=== PATIENT | male | born 2000 | race Caucasian/White ===

== ENCOUNTER 2021-11-02 18:35 | Inpatient (IN) | payer OTHER, SELFPAY ==
[2021-11-02] MEDS ORDERED: NA CHLORIDE 0.9% 1,000 ML ONE (18:58)
[2021-11-02 19:13] LABS: Absolute Lymphocytes (CBC) 1.1 K/uL (0.7-4.9); Hematocrit 45.6 % (39.6-49.0); Lymphocytes % 7.1 % (15.3-44.8); MCV 88.8 fL (80-100); MPV 8.1 fL (7.6-11.3); RBC Red Blood Cell Count 5.13 M/uL (4.33-5.43)
[2021-11-02 19:14] LABS: Urine Blood Trace-intact (Negative); Urine Glucose Negative (Negative); Urine Protein Trace (Negative); Urine pH 6.5 (5.0-7.0)
[2021-11-02 19:20] LABS: Protime INR 1.23
[2021-11-02 19:42] LABS: Barbiturates NEGATIVE (NEGATIVE); Benzodiazepines NEGATIVE (NEGATIVE); Cocaine POSITIVE (NEGATIVE); METHAMPHETAM NEGATIVE (NEGATIVE); Methadone NEGATIVE (NEGATIVE); Opiates NEGATIVE (NEGATIVE); Phencyclidine NEGATIVE (NEGATIVE); THC Cannibis POSITIVE (NEGATIVE)
[2021-11-02 19:51] LABS: ALT/SGPT 20 U/L (12-78); AST/SGOT 10 U/L (15-37); Albumin 4.6 g/dL (3.4-5.0); Alkaline Phosphatase 76 U/L (45-117); BUN Blood Urea Nitrogen 17 mg/dL (7-18); Bicarbonate 23 mmol/L (21-32); Bilirubin Direct 0.2 mg/dL (0-0.2); Bilirubin Total 0.9 mg/dL (0.2-1.0); Glomerular Filtration Rate 129 ml/min (=/>90); Glucose Level 101 mg/dL (74-106); Potassium 3.6 mmol/L (3.5-5.1); Protein, Total 8.8 g/dL (6.4-8.2); Sodium Level 141 mmol/L (136-145)
[2021-11-02] MEDS ORDERED: ONDANSETRON 4 MG/2 ML VIAL ONE (19:51)
--- NOTE | 2021-11-02 20:25 | RAD REPORT ---
EXAM DESCRIPTION: CT - Head Brain Wo Cont - 11/02/2021 8:15 pm CLINICAL HISTORY: Mental status change, alcohol/drug use COMPARISON: No comparisons TECHNIQUE: All CT scans are performed using dose optimization technique as appropriate and may inclu de automated exposure control or mA/KV adjustment according to patient size. FINDINGS: No intracranial hemorrhage, hydrocephalus or extra-axial fluid collection.No areas of brai n edema or evidence of midline shift. The paranasal sinuses and mastoids are clear. The calvarium is intact. IMPRESSION: No acute intracranial abnormality.
[2021-11-03] MEDS ORDERED: NA CHLORIDE 0.9% 1,000 ML ONE (01:32)
[2021-11-03] MEDS ORDERED: ACETAMINOPHEN 325 MG/SUPP PR ONE (01:39)
[2021-11-03] MEDS ORDERED: ACETAMINOPHEN 650MG/RECT SUPP PR ONE (01:50)
--- NOTE | 2021-11-03 02:08 | ER ---
Nurse's Notes [facility] Name: Rich Roman Age: 21 yrs Sex: Male : 2000 Arrival Date: 11/02/2021 Time: 18:37 Bed 5 Private MD: Diagnosis: Cocaine abuse;Cannabis abuse;Altered mental status, unspecified Presentation: 11/02 18:37 Chief complaint: AMS. Pt was dropped off by reported friend who only knew patients ss first name. Friend stated, "They told me to come pick him up and bring him here because he started shitting on himself and acting like this.". Coronavirus screen: Client denies travel out of the [place] in the last 14 days. Ebola Screen: Patient denies exposure to infectious person. Patient denies travel to an Ebola-affected area in the 21 days before illness onset. Initial Sepsis Screen: Does the patient meet any 2 criteria? No. Patient's initial sepsis screen is negative. Does the patient have a suspected source of infection? No. Patient's initial sepsis screen is negative. Risk Assessment: Do you want to hurt yourself or someone else? Patient reports no desire to harm self or others. 18:37 Method Of Arrival: Wheelchair ss 18:38 Acuity: JESICA 2 ss 18:38 Onset of symptoms is unknown. ss Historical: - Allergies: 23:25 No Known Allergies; lp1 - Home Meds: 18:51 Unable to obtain [Active]; ss - PMHx: 18:51 Unable to Obtain; ss - PSHx: 18:51 Unable to Obtain; ss - Immunization history:: Adult Immunizations unknown. - Social history:: Smoking status: unknown. Screenin:04 Nutritional screening: No deficits noted. Tuberculosis screening: No symptoms or risk jh6 factors identified. Fall Risk IV access (20 points). Ambulatory Aid- None/Bed Rest/Nurse Assist (0 pts). Mental Status- Overestimates/Forgets Limitations (15 pts.). 19:28 Abuse screen: Denies threats or abuse. Denies injuries from another. kd3 Assessment: 18:50 General: Appears distressed, slender, Behavior is agitated, anxious, dystonic type jh6 reaction to unkn substance. 18:50 Neuro: Do Agitation-Sedation Scale (RASS): +2 Agitated Level of Consciousness is jh6 awake, confused, Oriented to none Speech uncomprehended . 19:28 General: Appears distressed, Behavior is anxious. Pain: Unable to use pain scale. kd3 Neuro: Pupils are dilated. Respiratory: Airway is patent Trachea midline Respiratory effort is unlabored. EENT:. 20:01 Reassessment: one episode of vomiting. pt airway maintained, suctioned, administered kd3 Zofr[address] pt [address] on left side. O2 sat 100% on room air. lung sounds clear bilaterally. MD aware. GI: Pt is actively vomiting. 20:06 Reassessment: Patient and/or family updated on plan of care and expected duration. Pain kd3 level reassessed. Patient is alert, oriented x 3, equal unlabored respirations, skin warm/dry/pink. Patient states symptoms have improved. 23:03 General: pt able to make eye contact, nonverbal at this time . as6 23:11 Reassessment: Spoke with Shasha Saldana ([phone]), states she is patient has been lp1 living with her for the last 5 months; Give patient's demographics and birthdate, reports no known drug allergies, no other medical hx; Reports patient was not making sense yesterday, talking about things that did not happen, reported patient has hx of recreational drug abuse. 23:46 Reassessment: Patient and/or family updated on plan of care and expected duration. Pain kd3 level reassessed. Patient is alert, oriented x 3, equal unlabored respirations, skin warm/dry/pink. Patient states symptoms have improved. 11/03 00:36 Reassessment: No changes from previously documented assessment. as6 Vital Signs: 11/02 18:48 BP 148 / 98; Pulse 68; Resp 28; Pulse Ox 100% on R/A; ss 19:31 BP 133 / 76; Pulse 59; Resp 28; Pulse Ox 99% on R/A; kd3 19:57 BP 116 / 86; Pulse 59; Resp 31 S; Pulse Ox 100% on R/A; as6 20:00 Weight 51 kg; as6 20:55 BP 136 / 80; Pulse 59; Resp 18; Pulse Ox 100% on R/A; kd3 21:34 BP 136 / 95; Pulse 67; Resp 29 S; Pulse Ox 100% on R/A; as6 22:30 BP 127 / 84; Pulse 61; Resp 18 S; Pulse Ox 100% on R/A; as6 23:02 BP 130 / 80; Pulse 68; Resp 36 S; Pulse Ox 100% on R/A; as6 23:46 BP 130 / 72; Pulse 62; Resp 25; Pulse Ox 100% on R/A; kd3 11/03 00:35 BP 125 / 74; Pulse 63; Resp 27 S; Pulse Ox 100% on R/A; as6 01:24 BP 131 / 75; Pulse 79; Pulse Ox 99% ; kd3 01:29 Temp 100.3(A); as6 01:42 Temp 100.2(R); kd3 04:07 BP 130 / 76; Pulse 66; Resp 22; Temp 99.5(A); Pulse Ox 100% ; vc1 ED Course: 11/02 18:37 Patient arrived in ED. la1 18:37 Francisco Piper NP is PHCP. pm1 18:37 Al Joe MD is Attending Physician. pm1 18:48 Arm band placed on right wrist. ss 18:50 Placed in gown. Bed in low position. Side rails up X2. jh6 18:53 Triage completed. ss 19:02 Inserted saline lock: 18 gauge in left wrist, using aseptic technique. jh6 19:05 Straight cath inserted, using sterile technique, Specimen obtained. 15Fr Returned sanna dh3 urine. Patient tolerated well. 19:20 Sveta Beauchamp, MARIA GUADALUPE is Primary Nurse. kd3 19:28 Inserted saline lock: 16 gauge in right antecubital area, using aseptic technique. kd3 Blood collected. 20:17 CT Head Brain wo Cont In Process Unspecified. EDMS 11/03 02:07 Tejinder Reed MD is Hospitalizing Provider. pm1 02:08 Lina Schrader MD is Hospitalizing Provider. la1 04:40 No provider procedures requiring assistance completed. Patient admitted, IV remains in vc1 place. Administered Medications: 11/02 19:20 Drug: NS 0.9% 1000 ml Route: IV; Rate: 1000 ml; Site: left forearm; kd3 19:45 Drug: Zofran (Ondansetron) 4 mg Route: IVP; Site: right antecubital; as6 11/03 01:42 Drug: NS 0.9% 1000 ml Route: IV; Rate: 1000 ml; Site: left wrist; kd3 01:42 Drug: Tylenol Suppository 325 mg Route: MO; kd3 01:48 Drug: Tylenol Suppository 650 mg Route: MO; kd3 Medication: 11/02 19:28 VIS not applicable for this client. kd3 Outcome: 11/03 02:08 Decision to Hospitalize by Provider. pm1 04:40 Admitted to Med/surg accompanied by tech, via stretcher, room 203, Report called to jameel pineda RN 04:40 Condition: good 04:40 Instructed on the need for admit. vc1 04:49 Patient left the ED. 1 Signatures: Dispatcher [employer] EDMS Yissel Springer RN RN Mary Garcia RN RN lp1 Uday Bran, MANUFACTURING STOREPERSON-C MANUFACTURING STOREPERSON-Cla1 Francisco Piper, PLAY WRITER PLAY WRITER pm1 Carmen Vargas 3 Tommy Ignacio RN RN as6 Sveta Beauchamp RN RN 3 Ana Marrero RN RN jh6 Dalila Dillon RN RN vc1 Corrections: (The following items were deleted from the chart) 11/02 18:51 18:48 BP 148 / 98; Pulse 68bpm; Resp 16bpm; Pulse Ox 100% RA; [facility] 23:25 23:11 Reassessment: Spoke with Shasha Saldana ([phone]), states she is patient has lp1 been living with her for the last 5 months; Give patient's demographics and birthdate; Reports patient was not making sense yesterday, talking about things that did not happen, reported patient has hx of recreational drug abuse lp1 23:26 18:51 Allergies: Unable to obtain; ss lp1
--- NOTE | 2021-11-03 02:08 | EDPHYS ---
Physician Documentation [facility] Name: Rich Roman Age: 21 yrs Sex: Male : 2000 Arrival Date: 11/02/2021 Time: 18:37 Bed 5 Private MD: ED Physician Al Joe HPI: 11/02 18:39 This 21 yrs old Male presents to ER via Wheelchair with complaints of Altered Mental pm1 Status. 18:39 The patient presents with decreased mental status. Onset: The symptoms/episode pm1 began/occurred today. Possible causes: drug use, unknown. Associated signs and symptoms: Pertinent positives: incontinence. It is unknown whether or not the patient has had similar symptoms in the past. It is unknown whether or not the patient has recently seen a physician. 21-year-old male presents to the ER for complaints of altered mental status. Patient was dropped off by his friend. Patient's friend denies knowing the patient's last name or substances that the patient has taken. He reports that all he knows is that he was called to steel pickler the patient and bring him to the ER. Historical: - Allergies: 23:25 No Known Allergies; lp1 - Home Meds: 18:51 Unable to obtain [Active]; ss - PMHx: 18:51 Unable to Obtain; ss - PSHx: 18:51 Unable to Obtain; ss - Immunization history:: Adult Immunizations unknown. - Social history:: Smoking status: unknown. ROS: 18:39 Unable to obtain ROS due to altered mental status, patient's speech is pm1 incomprehensible, Inability to obtain review of systems from the patient because he is unable to communicate back. Patient with dilated pupils and suspicion of drug abuse based on presentation of patient and the friend who dropped him off. Exam: 18:39 Skin: Warm, dry with normal turgor. Normal color with no rashes, no lesions, and no pm1 evidence of cellulitis. MS/ Extremity: Pulses equal, no cyanosis. Neurovascular intact. Full, normal range of motion. 18:39 Constitutional: The patient appears in no acute distress, non-diaphoretic, non-toxic, well developed, well hydrated, well groomed, well nourished. 18:39 Head/face: Exam is negative for 18:39 Eyes: Pupils: dilated, bilaterally, right pupil is approximately 8 mm(s), left pupil is approximately 8 mm(s). 18:39 Cardiovascular: Exam negative for acute changes, Rate: normal, Rhythm: regular, Pulses: no pulse deficits are appreciated, Heart sounds: normal, normal S1and S2. 18:39 Respiratory: Exam negative for acute changes, respiratory distress, shortness of breath, Breath sounds: are clear throughout. 18:39 Abdomen/GI: Inspection: abdomen appears normal, Palpation: abdomen is soft and non-tender, in all quadrants. 18:39 Neuro: Motor: moves all fours, Abnormal movements: resting tremor, is located in the right arm, left arm, right leg, left leg and mouth. Vital Signs: 18:48 BP 148 / 98; Pulse 68; Resp 28; Pulse Ox 100% on R/A; ss 19:31 BP 133 / 76; Pulse 59; Resp 28; Pulse Ox 99% on R/A; kd3 19:57 BP 116 / 86; Pulse 59; Resp 31 S; Pulse Ox 100% on R/A; as6 20:00 Weight 51 kg; as6 20:55 BP 136 / 80; Pulse 59; Resp 18; Pulse Ox 100% on R/A; kd3 21:34 BP 136 / 95; Pulse 67; Resp 29 S; Pulse Ox 100% on R/A; as6 22:30 BP 127 / 84; Pulse 61; Resp 18 S; Pulse Ox 100% on R/A; as6 23:02 BP 130 / 80; Pulse 68; Resp 36 S; Pulse Ox 100% on R/A; as6 23:46 BP 130 / 72; Pulse 62; Resp 25; Pulse Ox 100% on R/A; kd3 06/ 00:35 BP 125 / 74; Pulse 63; Resp 27 S; Pulse Ox 100% on R/A; as6 01:24 BP 131 / 75; Pulse 79; Pulse Ox 99% ; kd3 01:29 Temp 100.3(A); as6 01:42 Temp 100.2(R); kd3 04:07 BP 130 / 76; Pulse 66; Resp 22; Temp 99.5(A); Pulse Ox 100% ; vc1 MDM: 11/02 18:37 Patient medically screened. pm1 19:44 Data interpreted: Pulse oximetry: on room air is 100 %. Interpretation: normal. pm1 23:54 Data reviewed: vital signs. pm11/03 02:07 Counseling: I had a detailed discussion with the patient and/or guardian regarding: the pm1 need for further work-up and treatment in the hospital. 11/02 18:38 Order name: Acetaminophen; Complete Time: 22:17 pm1 11/02 18:38 Order name: Basic Metabolic Panel; Complete Time: 22:17 pm1 11/02 18:38 Order name: CBC with Diff; Complete Time: 19:19 pm1 11/02 18:38 Order name: ETOH Level; Complete Time: 20:02 pm1 11/02 18:38 Order name: Hepatic Function; Complete Time: 22:17 pm1 11/02 18:38 Order name: PT-INR; Complete Time: 19:21 pm1 11/02 18:38 Order name: Ptt, Activated; Complete Time: 19:21 pm1 11/02 18:38 Order name: Salicylate; Complete Time: 20:02 pm1 11/02 18:38 Order name: Urine Drug Screen; Complete Time: 19:44 pm1 11/02 18:53 Order name: Glucose, Ancillary Testing; Complete Time: 18:59 EDMS 11/02 18:54 Order name: glucometer results - FOR PT WITH NO ID; Complete Time: 20:35 dh3 11/02 19:14 Order name: Urine Dipstick-Ancillary; Complete Time: 19:19 EDMS 11/02 20:02 Order name: CT Head Brain wo Cont; Complete Time: 20:27 pm1 11/03 02:08 Order name: COVID-19 SARS RT PCR (Document "Date of Onset" if Symptomatic) la1 11/02 18:38 Order name: EKG; Complete Time: 18:38 pm1 11/02 18:38 Order name: EKG - Nurse/Tech; Complete Time: 19:28 pm1 11/02 18:38 Order name: IV Saline Lock; Complete Time: 19:16 pm1 11/02 18:38 Order name: Labs collected and sent; Complete Time: 19:16 pm1 11/02 18:38 Order name: Suicide Screening ([place]); Complete Time: 02:15 pm1 11/02 18:38 Order name: Urine Dipstick-Ancillary (obtain specimen); Complete Time: 19:16 pm1 Administered Medications: 11/02 19:20 Drug: NS 0.9% 1000 ml Route: IV; Rate: 1000 ml; Site: left forearm; kd3 19:45 Drug: Zofran (Ondansetron) 4 mg Route: IVP; Site: right antecubital; as6 11/03 01:42 Drug: NS 0.9% 1000 ml Route: IV; Rate: 1000 ml; Site: left wrist; kd3 01:42 Drug: Tylenol Suppository 325 mg Route: MN; kd3 01:48 Drug: Tylenol Suppository 650 mg Route: MN; kd3 Disposition Summary: 11/03/21 02:08 Hospitalization Ordered Hospitalization Status: Observation pm1 Location: Telemetry/MedSurg (observation) pm1 Condition: Stable pm1 Problem: new pm1 Symptoms: have improved pm1 Bed/Room Type: Standard pm1 Provider: Lina Schrader(11/03/21 02:08) la1 Room Assignment: [facility](11/03/21 03:37) Diagnosis - Cocaine abuse pm1 - Cannabis abuse pm1 - Altered mental status, unspecified pm1 Discharge Instructions: - Discharge Summary Sheet pm1 - Cocaine Use Disorder pm1 - Cannabis Use Disorder pm1 Forms: - Medication Reconciliation Form pm1 - SBAR form pm1 Addendum: 11/06/2021 19:16 Co-signature as Attending Physician, Al Joe MD I agree with the assessment and k dr plan of care. Signatures: Dispatcher [employer] EDMS Al Joe MD MD kdr Smirch, Shelby, RN RN Mary Garcia RN RN lp1 Uday Bran, DESIGN ENGINEER AGRICULTURAL EQUIPMENT-C DESIGN ENGINEER AGRICULTURAL EQUIPMENT-Cla1 Barbara Garrison RN RN cg Francisco Piper, AVE LUMBER HACKER pm1 Tommy Ignacio RN RN as6 Sveta Beauchamp RN RN kd3 Corrections: (The following items were deleted from the chart) 11/02 23:26 18:51 Allergies: Unable to obtain; lp1 11/03 02:08 02:08 Tejinder Reed pm1 la1 03:37 02:08 pm1 cg
--- NOTE | 2021-11-03 02:20 | P.HP ---
Certification for Inpatient Patient admitted to: Observation With expected LOS: <2 Midnights Patient will require the following post-hospital care: None Practitioner: I am a practitioner with admitting privileges, knowledge of patient current condition, hospital course, and medical plan of care. Services: Services provided to patient in accordance with Admission requirements found in Title 42 Section 412.3 of the Code of Federal Regulations Patient History Date of Service: 11/03/21 Reason for admission: Altered mental status History of Present Illness: 21-year-old male with history of polysubstance abuse presented to the emergency department with altered mental status. He apparently has been residing with a friend at his mother's house over the course of the last 5 months or so. The patient's friend's mother called she reported that he does have a history of polysubstance abuse including benzos and opiates. Upon presentation to the emergency department patient is awake looking around room pupils are dilated but is not verbally responsive. Patient will make eye contact and grunt but not speaking clearly at this time he has had multiple episodes of vomiting while in the emergency department his vital signs have remained stable his labs were unremarkable including a negative Tylenol level, his urine drug screen was positive for cocaine and marijuana. he remains altered at this time. ED prior wishes to admit for altered mental status likely secondary to poly substance abuse. - Past Medical/Surgical History -: Substance abuse Past Surgical History: Unable to obtain Psychosocial/ Personal History: Reportedly living with a friend at their mother's house - Family History Father History Unknown: Yes - Social History Smoking Status: Unknown if ever smoked Place of Residence: Home Review of Systems is unable to be obtained Physical Examination - Physical Exam General: Alert, In no apparent distress, Confused HEENT: Atraumatic, PERRLA, Other (Mucous membranes dry), EOMI, Sclerae nonicteric Neck: Supple, 2+ carotid pulse no bruit, No LAD, Without JVD or thyroid abnormality Respiratory: Clear to auscultation bilaterally, Normal air movement Cardiovascular: Regular rate/rhythm, Normal S1 S2 Capillary refill: <2 Seconds Gastrointestinal: Normal bowel sounds, No tenderness Musculoskeletal: No tenderness Integumentary: No rashes Neurological: Normal strength at 5/5 x4 extr, Normal tone, Normal affect, Other (Awake, not verbally communicating, moving all 4 extremities.) Lymphatics: No axilla or inguinal lymphadenopathy - Studies Laboratory Data (last 24 hrs) 11/02/21 19:25: Sodium 141, Potassium 3.6, BUN 17, Creatinine 0.81, Glucose 101, Total Bilirubin 0.9, AST 10 L, ALT 20, Alkaline Phosphatase 76 11/02/21 18:45: PT 13.6 H, INR 1.23, APTT 29.6 11/02/21 18:45: WBC 14.7 H, Hgb 15.4, Hct 45.6, Plt Count 370 Assessment and Plan - Plan Assessment: Toxic metabolic encephalopathy secondary to polysubstance abuse Plan: Toxic metabolic encephalopathy secondary to polysubstance abuse: It is unknown exactly what substance patient ingested, he was with his friends who do not appear to be under the influence at this time they are not sure what he had taken although his urine drug screen was positive for cocaine and marijuana. He does appear to be gradually improving during his stay in the emergency department although he is still not verbally communicating and clearly altered. At this point time he is not following commands although he is moving all 4 extremities. His tox work-up is negative so far aside from the positive urine drug screen. we will repeat Tylenol level CT head was negative anticipate mental status will improve over the course of the next 12 to 24 hours. Patient will need to be counseled on dangers of substance abuse and screened for suicidal ideation. DVT PPX: Lovenox Code status: Full Discharge Plan: Home Plan to discharge in: 24 Hours - Advance Directives Does patient have a Living Will: No Does patient have a Durable POA for Healthcare: No - Code Status/Comfort Care Code Status Assessed: Yes (Full code) Critical Care: No Time Spent Managing Pts Care (In Minutes): 70
[2021-11-03] MEDS ORDERED: D5 0.45 NS 1,000 ML IV SCH (04:59)
[2021-11-03] MEDS ORDERED: ONDANSETRON 4 MG/2 ML VIAL IV PRN (04:59)
[2021-11-03 05:25] VITALS: O2SAT 100
[2021-11-03] MEDS ORDERED: DIPHENHYDRAMINE 50 MG/ML VIAL IV ONE (05:51)
[2021-11-03 06:13] LABS: Absolute Lymphocytes (CBC) 1.1 K/uL (0.7-4.9); Hematocrit 40.7 % (39.6-49.0); Lymphocytes % 8.5 % (15.3-44.8); MPV 7.1 fL (7.6-11.3); RBC Red Blood Cell Count 4.52 M/uL (4.33-5.43)
[2021-11-03] MEDS ORDERED: LORazepam 2 MG/ML VIAL IV ONE (08:00)
[2021-11-03] MEDS ORDERED: D5NS KCL 20MEQ 20 MEQ/1,000 ML BAG IV SCH (08:00)
[2021-11-03] MEDS: ENOXAPARIN 40 MG/0.4 ML SQ SCH (08:30)
--- NOTE | 2021-11-03 09:35 | P.PN ---
Subjective Date of Service: 11/03/21 Chief Complaint: Altered mental status Subjective: New changes (Patient still obtunded , open eyes but not following command Appears to be in a catatonic state with repeated contractures and tremors of extremities Extension of neck and repeated tightening of the jaw noted Ativan given and transferred to ICU) Physical Examination - Vital Signs Temperature: 98.4 F Blood Pressure: 121/83 Pulse: 68 Respirations: 20 Pulse Ox (%): 99 - Studies Laboratory Data (last 24 hrs) 11/02/21 19:25: Sodium 141, Potassium 3.6, BUN 17, Creatinine 0.81, Glucose 101, Total Bilirubin 0.9, AST 10 L, ALT 20, Alkaline Phosphatase 76 11/02/21 18:45: PT 13.6 H, INR 1.23, APTT 29.6 11/02/21 18:45: WBC 14.7 H, Hgb 15.4, Hct 45.6, Plt Count 370 Assessment And Plan Physician Review: Patient Assessed, Agree with Above Assessment and Plan Physician Review Additional Text: Patient presenting with altered mental status in setting of illicit drug abuse , urine drug screen positive for THC and cocaine hysical Exam General: Alert, young male, in dystonic state with hyperextension of neck, not following commands HEENT: Atraumatic, pupils markedly dilated, Neck: Supple, 2+ carotid pulse no bruit, No LAD, Without JVD or thyroid abnormality Respiratory: Clear to auscultation bilaterally, Normal air movement Cardiovascular: Regular rate/rhythm, Normal S1 S2 Capillary refill: <2 Seconds Gastrointestinal: Normal bowel sounds, No tenderness Musculoskeletal: No tenderness Integumentary: No rashes Neurological: Dystonic flexion of extremities with repeated tremors and frequent checks, Lymphatics: No axilla or inguinal lymphadenopathy - Studies Laboratory Data (last 24 hrs) 11/02/21 19:25: Sodium 141, Potassium 3.6, BUN 17, Creatinine 0.81, Glucose 101, Total Bilirubin 0.9, AST 10 L, ALT 20, Alkaline Phosphatase 76 11/02/21 18:45: PT 13.6 H, INR 1.23, APTT 29.6 11/02/21 18:45: WBC 14.7 H, Hgb 15.4, Hct 45.6, Plt Count 370 Urine drug screen positive for THC and cocaine Assessment and Plan Cocaine induced dystonia Toxic metabolic encephalopathy secondary to polysubstance abuse Plan Now with generalized dystonic reaction, still dilated pupils, still nonverbal, still obtunded and not following commands. continue aggressive IV fluid We will give Ativan repeat dose, transfer to ICU Dose IV baclofen if available Expected dystonic reaction to continue to improve with benzodiazepine Formal neuro consult Will obtain repeat head CT to see if any change compared to yesterday Continue to monitor closely Will need to discuss drug cessation 11/03/21 09:40 Time Spent Managing PTS Care (In Minutes): 35
--- NOTE | 2021-11-03 10:00 | RAD REPORT ---
EXAM DESCRIPTION: CT - Head Brain Wo Cont - 11/03/2021 9:33 am CLINICAL HISTORY: follow up of AMS Headache, drowsiness, CVA symptomology COMPARISON: Head Brain Wo Cont dated 11/02/2021 TECHNIQUE: All CT scans are performed using dose optimization technique as appropriate and may inclu de automated exposure control or mA/KV adjustment according to patient size. FINDINGS: No intracranial hemorrhage, hydrocephalus or extra-axial fluid collection.No areas of brai n edema or evidence of midline shift. The paranasal sinuses and mastoids are clear. The calvarium is intact. IMPRESSION: No acute intracranial abnormality.
[2021-11-03 11:35] LABS: ALT/SGPT 16 U/L (12-78); AST/SGOT 10 U/L (15-37); Albumin 4.2 g/dL (3.4-5.0); Alkaline Phosphatase 71 U/L (45-117); BUN Blood Urea Nitrogen 19 mg/dL (7-18); Bicarbonate 22 mmol/L (21-32); Bilirubin Total 0.8 mg/dL (0.2-1.0); Glomerular Filtration Rate 129 ml/min (=/>90); Glucose Level 118 mg/dL (74-106); Potassium 4.3 mmol/L (3.5-5.1); Protein, Total 8.2 g/dL (6.4-8.2); Sodium Level 142 mmol/L (136-145)
[2021-11-03] MEDS: LORazepam 2 MG/ML VIAL IV PRN ×3 (12:35→23:58)
[2021-11-03] MEDS: D5NS KCL 20MEQ 20 MEQ/1,000 ML BAG IV SCH ×2 (17:25→23:28)
[2021-11-04 05:42] LABS: Absolute Lymphocytes (CBC) 1.5 K/uL (0.7-4.9); Hematocrit 37.8 % (39.6-49.0); Lymphocytes % 12.5 % (15.3-44.8); MCV 89.4 fL (80-100); MPV 7.2 fL (7.6-11.3); RBC Red Blood Cell Count 4.23 M/uL (4.33-5.43)
[2021-11-04] MEDS: D5NS KCL 20MEQ 20 MEQ/1,000 ML BAG IV SCH (05:57)
[2021-11-04 06:00] LABS: Albumin 3.8 g/dL (3.4-5.0); Bilirubin Total 1.1 mg/dL (0.2-1.0); Potassium 3.7 mmol/L (3.5-5.1); Protein, Total 7.3 g/dL (6.4-8.2)
[2021-11-04] MEDS: ENOXAPARIN 40 MG/0.4 ML SQ SCH (09:07)
--- NOTE | 2021-11-04 11:46 | P.PN ---
Subjective Date of Service: 11/04/21 Chief Complaint: Altered mental status Subjective: No new changes, Improving Physical Examination - Vital Signs Temperature: 99 F Blood Pressure: 129/98 Pulse: 52 Respirations: 25 Pulse Ox (%): 100 - Physical Exam General: Alert, Cooperative HEENT: Atraumatic, Normocephalic Neck: Supple Respiratory: Normal air movement Cardiovascular: Regular rate/rhythm, Normal S1 S2 Gastrointestinal: Soft and benign Musculoskeletal: No swelling Neurological: Normal speech Assessment And Plan - Plan Cocaine induced dystonia Toxic metabolic encephalopathy secondary to polysubstance abuse Plan Had improvement with Benadryl doses. Presently moderately improved as per mentation and able to communicate. Will continue present care with monitoring for continued dystonic reaction. Will continue supportive care with IV fluid as needed and will encourage oral intake. As needed benzodiazepine will be used for any agitation episode/sympathetic hyperactivity. Neurology following Discharge Plan: Home - Code Status/Comfort Care Code Status: Full Code
[2021-11-04] MEDS: LORazepam 2 MG/ML VIAL IV PRN ×2 (19:04→23:05)
[2021-11-05] MEDS: LORazepam 2 MG/ML VIAL IV PRN ×4 (04:51→21:01)
[2021-11-05 05:22] VITALS: BMI 14.6
[2021-11-05 05:42] LABS: Potassium 3.3 mmol/L (3.5-5.1)
[2021-11-05] MEDS ORDERED: POTASSIUM CL SA 10 MEQ TAB PO ONE (07:00)
--- NOTE | 2021-11-05 08:11 | P.PN ---
Subjective Date of Service: 11/05/21 Chief Complaint: Altered mental status Subjective: No new changes, Improving Physical Examination - Vital Signs Temperature: 97 F Blood Pressure: 111/56 Pulse: 80 Respirations: 21 Pulse Ox (%): 100 - Physical Exam General: Alert, Oriented x3 HEENT: Atraumatic, Normocephalic Neck: Supple Respiratory: Normal air movement Cardiovascular: Regular rate/rhythm, Normal S1 S2 Gastrointestinal: Soft and benign Musculoskeletal: No swelling Neurological: Normal speech Assessment And Plan - Plan Cocaine induced dystonia Toxic metabolic encephalopathy secondary to polysubstance abuse, improved. Plan HAs significant improvement in mentation. Now alert and oriented and communicative. We will continue as needed benzodiazepine will be used for any agitation episode/sympathetic hyperactivity. ambulatory services representative to continue assisting with drug detoxification program placement. Physician Review: Patient Assessed, Agree with Above Assessment and Plan
[2021-11-05] MEDS: ENOXAPARIN 40 MG/0.4 ML SQ SCH (09:06)
[2021-11-05] MEDS: chlordiazePOXIDE HCl 25 MG CAP PO SCH ×2 (13:04→20:07)
[2021-11-06] MEDS: LORazepam 2 MG/ML VIAL IV PRN ×2 (00:59→05:46)
[2021-11-06 04:52] LABS: Absolute Lymphocytes (CBC) 2.4 K/uL (0.7-4.9); Hematocrit 39.3 % (39.6-49.0); Lymphocytes % 17.8 % (15.3-44.8); MPV 7.2 fL (7.6-11.3); RBC Red Blood Cell Count 4.42 M/uL (4.33-5.43)
[2021-11-06 05:08] LABS: Potassium 3.1 mmol/L (3.5-5.1)
[2021-11-06] MEDS ORDERED: POTASSIUM 25 MEQ EFFERV TAB PO ONE (09:00)
[2021-11-06] MEDS: chlordiazePOXIDE HCl 25 MG CAP PO SCH ×2 (09:06→14:22)
[2021-11-06] MEDS: ENOXAPARIN 40 MG/0.4 ML SQ SCH (09:06)
[2021-11-06 13:49] VITALS: TEMP 98.2
--- NOTE | 2021-11-06 14:45 | EKG ---
Test Date: 2021-11-02 Test Time: 18:57:11 Agency Legal Counsel: BJ MEASUREMENT RESULTS: Intervals: Rate: 68 DC: 118 QRSD: 88 QT: 434 QTc: 461 Wilmer: P: 63 DC: 118 QRS: 82 T: 76 INTERPRETIVE STATEMENTS: Normal sinus rhythm Normal ECG No previous ECG available for comparison Electronically Signed On 11-06-21 14:41:54 CDT by Jose Manuel Nunes
[2021-11-06 15:30] VITALS: BP 113/67
--- NOTE | 2021-11-08 00:14 | P.DS ---
Discharge Date: 11/06/21 Disposition: ROUTINE DISCHARGE Reason for Admission: Altered mental status Brief History of Present Illness: 21-year-old male with history of polysubstance abuse presented to the emergency department with altered mental status. He apparently has been residing with a friend at his mother's house over the course of the last 5 months or so. The patient's friend's mother called she reported that he does have a history of polysubstance abuse including benzos and opiates. Upon presentation to the emergency department patient is awake looking around room pupils are dilated but is not verbally responsive. Patient will make eye contact and grunt but not sp eaking clearly at this time he has had multiple episodes of vomiting while in the emergency department his vital signs have remained stable his labs were unremarkable including a negative Tylenol level, his urine drug screen was positive for cocaine and marijuana. he remains altered at this time. ED prior wishes to admit for altered mental status likely secondary to poly substance abuse. Hospital Course: Talked with family and patient case manager. Patient will need to follow up as an outpatient for rehab. He is clinically doing well with no new complaints. At this time will go ahead and proceed with discharge home. Vital Signs/Physical Exam: Temp Pulse Resp BP Pulse Ox 98.2 F 95 H 14 113/67 100 11/06/21 12:00 11/06/21 14:00 11/06/21 14:00 11/06/21 14:00 11/05/21 16:00 General: Alert, In no apparent distress, Oriented x3 Laboratory Data at Discharge: WBC 13.7 K/uL (4.3-10.9) H D 11/06/21 04:35 Hgb 13.4 g/dL (13.6-17.9) L 11/06/21 04:35 Hct 39.3 % (39.6-49.0) L 11/06/21 04:35 Plt Count 312 K/uL (152-406) 11/06/21 04:35 PT 13.6 SECONDS (9.5-12.5) H 11/02/21 18:45 INR 1.23 11/02/21 18:45 APTT 29.6 SECONDS (24.3-36.9) 11/02/21 18:45 Sodium 139 mmol/L (136-145) 11/06/21 04:35 Potassium Cancelled 11/06/21 15:00 BUN 13 mg/dL (7-18) 11/06/21 04:35 Creatinine 0.75 mg/dL (0.55-1.3) 11/06/21 04:35 Glucose 89 mg/dL (74-106) 11/06/21 04:35 Total Bilirubin 1.1 mg/dL (0.2-1.0) H 11/04/21 05:13 AST 33 U/L (15-37) 11/04/21 05:13 ALT 21 U/L (12-78) 11/04/21 05:13 Alkaline Phosphatase 61 U/L (45-117) 11/04/21 05:13 Home Medications: Bupropion *Xl* [Wellbutrin XL] 150 mg PO DAILY #30 tab 11/06/21 Divalproex Sodium [Depakote] 125 mg PO BID #60 tablet. 11/06/21 chlordiazePOXIDE HCl [Chlordiazepoxide HCl] 10 mg PO TID #90 capsule 11/06/21 New Medications: chlordiazePOXIDE HCl [Chlordiazepoxide HCl] 10 mg PO TID #90 capsule Divalproex Sodium [Depakote] 125 mg PO BID #60 tablet. Bupropion *Xl* [Wellbutrin XL] 150 mg PO DAILY #30 tab Physician Discharge Instructions: -DC IV and DC home -Follow-up with PCP in 1 to 2 weeks -Follow-up with Psychiatry in 1 to 2 weeks -Please call Dr. Lindo at [phone] if any questions regarding hospital stay -Please call nursing station at [phone] if any nursing or medication questions -Return to the emergency room if symptoms worsen Diet: Regular Activity: Fall precautions Followup: NONE,NONE [Primary Care Provider] - Time spent managing pt's care (in minutes): 35
== END 2021-11-06 15:20 | disposition home or self-care (01) | DRG 917 ==
LOC: EDBD 18:35 → ER 18:35 → ERHOLD 11-03 02:11 → 2ND 11-03 04:22 → 3RD-ICU 11-03 09:30 → OBSVTOIN 11-03 10:49
PROVIDERS: ADMIT Internal Medicine; ATTEND Internal Medicine
DX: T40.5X1A Poisoning by cocaine, accidental (unintentional), initial encounter (principal); G92.8 Other toxic encephalopathy; G24.09 Other drug induced dystonia; T40.711A Poisoning by cannabis, accidental (unintentional), initial encounter; Y92.009 Unspecified place in unspecified non-institutional (private) residence as the place of occurrence of the external cause; Z20.822 Contact with and (suspected) exposure to COVID-19
CPT/HCPCS: 36415; 51702; 70450; 80048; 80053; 80076; 80307; 80320; 80329; 81003; 82947; 85025; 85610; 85730; 93005; 96374; 99285; G0378; J1200; J1650; J2405; J3480; J7030; J7799; U0003

== ENCOUNTER 2021-11-07 22:30 | Emergency (ER) | payer OTHER ==
--- NOTE | 2021-11-07 23:57 | ER ---
Nurse's Notes [facility] Name: Rich Roman Age: 21 yrs Sex: Male : 2000 Arrival Date: 11/07/2021 Time: 22:33 Bed 14 Private MD: Diagnosis: Weakness Presentation: 11/07 22:54 Chief complaint: Patient states: i was discharged yesterday from the ICU and since I kd3 went home I just feel really weak and my body aches. I was here for drug overdose and I was sent home with medications but I don't remember what the names were. i think the medications are making me sick. Coronavirus screen: Vaccine status: Patient reports being unvaccinated. Ebola Screen: No symptoms or risks identified at this time. 22:54 Method Of Arrival: Wheelchair kd3 22:57 Initial Sepsis Screen: Does the patient meet any 2 criteria? No. Patient's initial kd3 sepsis screen is negative. Does the patient have a suspected source of infection? No. Patient's initial sepsis screen is negative. Risk Assessment: Do you want to hurt yourself or someone else? Patient reports no desire to harm self or others. Onset of symptoms was November 07, 2021. 22:57 Acuity: JESICA 3 kd3 Triage Assessment: 22:57 General: Appears ill, Behavior is calm, cooperative. Pain: Complains of pain in general kd3 body aches. Historical: - Allergies: 22:57 No Known Allergies; kd3 - Home Meds: 22:57 None [Active]; kd3 - PMHx: 22:57 None; kd3 - Immunization history:: Adult Immunizations up to date. - Social history:: Smoking status: unknown. Screenin:58 Abuse screen: Denies threats or abuse. Denies injuries from another. Nutritional kd3 screening: No deficits noted. Tuberculosis screening: No symptoms or risk factors identified. Fall Risk Gait- Weak (10 pts.). Assessment: 11/08 00:12 Reassessment: Patient decides to leave AMA because he wants to go home to his bed ke1 .Patient refuses to stay despite PA Hao encouragement to stay for his own safety . AMA papers signed by patient. Vital Signs: 11/07 22:54 BP 124 / 77; Pulse 63; Resp 18; Temp 99.1; Pulse Ox 99% on R/A; Weight 63.5 kg; Height kd3 6 ft. 2 in. (187.96 cm); Pain 7/10; 22:54 Body Mass Index 17.97 (63.50 kg, 187.96 cm) kd3 ED Course: 22:33 Patient arrived in ED. ja2 22:57 Triage completed. kd3 22:57 Arm band placed on right wrist. kd3 22:58 Patient has correct armband on for positive identification. kd3 23:09 Hao Corey PA is PHCP. cp 23:09 Al Joe MD is Attending Physician. christy 23:52 Laci Fenton, MARIA GUADALUPE is Primary Nurse. ke1 11/08 00:15 Patient did not have IV access during this emergency room visit. ke1 Administered Medications: No medications were administered Outcome: 11/07 23:56 Discharge ordered by . cp 11/08 00:15 AMA AMA form signed ke1 00:15 Patient left the ED. ke1 Signatures: Hao Corey PA PA cp Alexander, Jessica 2 Sveta Beauchamp, RN RN 3 Laci Fenton, MARIA GUADALUPE RN ke1
--- NOTE | 2021-11-07 23:57 | EDPHYS ---
Physician Documentation [facility] Name: Rich Roman Age: 21 yrs Sex: Male : 2000 Arrival Date: 11/07/2021 Time: 22:33 Bed 14 Private MD: ED Physician Al Joe HPI: 11/07 23:50 This 21 yrs old Male presents to ER via Wheelchair with complaints of Weakness. cp 23:50 The patient presents to the emergency department with weakness of the entire body, cp generalized weakness. Onset: The symptoms/episode began/occurred today. Associated signs and symptoms: Pertinent negatives: altered mental status, fever, headache, neck stiffness, syncope. Severity of symptoms: in the emergency department the symptoms are unchanged. Patient's baseline: Neuro: alert and fully oriented, Motor: no deficits, Ambulation: walks without assistance, Speech: normal, The patient has a previous history of chronic drug use. Current symptoms: general weakness. Patient reports recent discharge from ICU yesterday after being admitted last . Patient reports he was admitted to hospital after taking "street drugs". Patient reports he is unsure what drug he took as the attending physician did not tell him. Currently taking divalproex and Librium for drug withdrawal. Historical: - Allergies: 22:57 No Known Allergies; kd3 - Home Meds: 22:57 None [Active]; kd3 - PMHx: 22:57 None; kd3 - Immunization history:: Adult Immunizations up to date. - Social history:: Smoking status: unknown. ROS: 23:52 Constitutional: Negative for body aches, chills, fever, poor PO intake. cp 23:52 Eyes: Negative for injury, pain, redness, and discharge. cp 23:52 Cardiovascular: Negative for chest pain. 23:52 Respiratory: Negative for cough, shortness of breath, wheezing. 23:52 Abdomen/GI: Negative for abdominal pain, vomiting, diarrhea, constipation. 23:52 Neuro: Positive for weakness, Negative for altered mental status, seizure activity, speech changes. 23:52 All other systems are negative. Exam: 23:55 Constitutional: The patient appears in no acute distress, alert, awake, cp non-diaphoretic, non-toxic, well developed, well nourished. 23:55 Head/Face: Normocephalic, atraumatic. cp 23:55 Eyes: Periorbital structures: appear normal, Pupils: equal, round, and reactive to light and accomodation, Extraocular movements: intact throughout, Conjunctiva: normal, no exudate, no injection, Sclera: no appreciated abnormality, Lids and lashes: appear normal, bilaterally. 23:55 ENT: External ear(s): are unremarkable, Nose: is normal, Mouth: Lips: moist, Oral mucosa: pink and intact, moist, Posterior pharynx: Airway: no evidence of obstruction, patent. 23:55 Neck: ROM/movement: is normal, is supple, without pain, no range of motions limitations, no meningismus. 23:55 Chest/axilla: Inspection: normal. 23:55 Cardiovascular: Rate: normal, Rhythm: regular. 23:55 Respiratory: the patient does not display signs of respiratory distress, Respirations: normal, no use of accessory muscles, no retractions, labored breathing, is not present, Breath sounds: are clear throughout, no decreased breath sounds, no stridor, no wheezing. 23:55 Abdomen/GI: Inspection: abdomen appears normal, Palpation: abdomen is soft and non-tender, in all quadrants. 23:55 Back: pain, is absent, ROM is normal. 23:55 Neuro: Orientation: to person, place \\T\\ time. Mentation: is normal, Motor: moves all fours, strength is normal, Sensation: is normal. Vital Signs: 22:54 BP 124 / 77; Pulse 63; Resp 18; Temp 99.1; Pulse Ox 99% on R/A; Weight 63.5 kg; Height kd3 6 ft. 2 in. (187.96 cm); Pain 7/10; 22:54 Body Mass Index 17.97 (63.50 kg, 187.96 cm) kd3 MDM: 23:28 Patient medically screened. cp 23:56 Data reviewed: vital signs, nurses notes. cp 23:56 Counseling: I had a detailed discussion with the patient and/or guardian regarding: the cp historical points, exam findings, and any diagnostic results supporting the discharge/admit diagnosis. Refusal of service: The patient/guardian displays adequate decision making capability and despite a detailed discussion of alternatives, benefits, risks, and consequences refuses: all lab tests. ED course: Patient requesting discharge to home and refusal to have any tests, labs, treatment at this time. Informed patient he may return to ED for reevaluation if symptoms worsen. 11/07 23:43 Order name: EKG - Nurse/Tech cp 11/07 23:43 Order name: IV Saline Lock cp 11/07 23:43 Order name: Labs collected and sent cp 11/07 23:43 Order name: Suicide Screening ([place]) cp 11/07 23:43 Order name: Urine Dipstick-Ancillary (obtain specimen) cp Administered Medications: No medications were administered Disposition Summary: 11/07/21 23:56 Discharge Ordered Location: Home cp Problem: new cp Symptoms: are unchanged cp Condition: Stable cp Diagnosis - Weakness cp Followup: cp - With: Private Physician - When: 1 - 2 days - Reason: Recheck today's complaints Discharge Instructions: - Discharge Summary Sheet cp - Weakness cp Forms: - Medication Reconciliation Form cp - Thank You Letter cp - Antibiotic Education cp - Prescription Opioid Use cp Addendum: 11/09/2021 02:52 Co-signature as Attending Physician, Al Joe MD I agree with the assessment and k dr plan of care. Signatures: Dispatcher [employer] EDMS Al Joe MD MD [facility] Hao Corey PA PA cp Sveta Beauchamp, RN RN kd3
[2021-11-08 01:11] VITALS: BP 124/77; TEMP 99.1; O2SAT 99
== END 2021-11-08 00:15 | disposition home or self-care (01) ==
LOC: ER 22:30
DX: R53.1 Weakness (principal)